=== PATIENT | male | born 1955 | race Caucasian/White ===

== ENCOUNTER 2019-09-26 10:35 | Inpatient (IN) | payer OTHER ==
[~2019-09-26] VITALS: Ht 182.9 cm; Wt 101.2 kg
[2019-09-26] MEDS ORDERED: ASPIRIN 81 MG CHEW TAB PO ONE (11:00)
[2019-09-26 11:24] LABS: BASOPHILS % 0.4 % (0.0-1.0); EOSINOPHILS # (AUTO) 0.2 (0.0-0.4); EOSINOPHILS % 3.4 % (0.0-6.0); HEMATOCRIT 40.3 % (38.2-49.6); HEMOGLOBIN 13.7 g/dL (14.0-18.0); LYMPHOCYTES # (AUTO) 1.7 (1.0-3.2); LYMPHOCYTES % 31.3 % (18.0-39.1); MEAN CORPUSCULAR VOLUME 85.2 fL (81-99); MONOCYTES # (AUTO) 0.4 (0.2-0.8); MONOCYTES % 8.3 % (4.4-11.3); NEUTROPHILS % 56.4 % (38.7-80.0); PLATELET COUNT 144 x10e3/uL (140-360); RED BLOOD COUNT 4.73 x10e6/uL (4.3-5.7); RED CELL DISTRIBUTION WIDTH 12.8 % (11.7-14.4)
[2019-09-26 11:41] LABS: INR 1.04; PROTHROMBIN TIME 14.1 seconds (11.9-14.5)
[2019-09-26 11:42] LABS: PARTIAL THROMBOPLASTIN TIME 31.7 seconds (23.8-35.5)
[2019-09-26 11:44] LABS: ALANINE AMINOTRANSFERASE 12 IU/L (0-55); ALBUMIN 3.8 g/dL (3.5-5.0); ALBUMIN/GLOBULIN RATIO 1.1 (0.8-2.0); ALKALINE PHOSPHATASE 82 IU/L (40-150); ANION GAP 14.8 mmol/L (8-16); BLOOD UREA NITROGEN 12 mg/dL (7-26); BUN/CREATININE RATIO 11 (6-25); CALCIUM 9.1 mg/dL (8.4-10.2); CARBON DIOXIDE 25 mmol/L (22-29); CHLORIDE 104 mmol/L (98-107); CREATINE KINASE 107 IU/L (30-200); CREATININE, SERUM 1.08 mg/dL (0.72-1.25); EST GLOMERULAR FILTRATION RATE > 60 ML/MIN (60-); MAGNESIUM 2.1 MG/DL (1.3-2.1); POTASSIUM 3.8 mmol/L (3.5-5.1); SODIUM 140 mmol/L (136-145)
[2019-09-26 11:59] LABS: GLUCOSE 88 mg/dL (74-118)
--- NOTE | 2019-09-26 12:06 | Diagnostic Imaging Report ---
EXAMINATION: CHEST SINGLE (PORTABLE) COMPARISON: None INDICATION: ^CP ^[id number] ^1136 DISCUSSION: Frontal view of the chest obtained at 1136 hours. HEART AND MEDIASTINUM: The cardiomediastinal silhouette is unremarkable. LINES: None. LUNGS: The lungs are well inflated and clear. Trace left basilar atelectasis. There is mild eventration of the left diaphragm PLEURA: No pleural effusion or pneumothorax. BONES AND SOFT TISSUES: Mild degenerative changes. No focal osseous lesion. The soft tissues are normal. IMPRESSION: Trace left basilar atelectasis and mild eventration of the left diaphragm. Signed by: Dr. Willow Hassan MD on 09/26/2019 12:02 PM
[2019-09-26] MEDS ORDERED: ONDANSETRON HCL INJ 2MG/ML 2ML 2 MG/ML VIAL IV PRN (12:30)
[2019-09-26] MEDS ORDERED: MORPHINE SULFATE 2 MG/ML SYR 1ML IV PRN (12:30)
[2019-09-26] MEDS: ENOXAPARIN SODIUM INJ 100 MG/ML SYR SC SCH (12:45)
--- OUTSIDE RECORDS SUMMARY | 2019-09-26 12:47 | XMS REPORT ---
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 Allergies, Adverse Reactions, Alerts This patient has no known allergies or adverse reactions. Medications This patient has no known medications. Results Test Description Test Time Test Comments Text Results Atomic Results Result Comments CHEST SINGLE (PORTABLE) 2019-09-26 12:01:[address] [address] Patient Name: VOLODYMYR ALVES JR MR #: [id number] : 1955 Age/Sex: 64/M Req #: [id number] Adm Physician: Ordered by: OTILIA RICHMOND MD Report #: [id number] Location: ER Room/Bed: Procedure: [id number] DX/CHEST SINGLE (PORTABLE) Exam Date: 09/26/19 Exam Time: 1136 REPORT STATUS: Signed EXAMINATION: CHEST SINGLE (PORTABLE) COMP ARISON: None INDICATION: CP [id number] DISCUSSION: Frontal view of the chest obtained at 1136 hours. HEART AND MEDIASTINUM: The cardiomediastinal silhouette is unremarkable. LINES: None. LUNGS: The lungs are well inflated and clear. Trace left basilar atelectasis. There is mild eventration of the left diaphragm PLEURA: No pleural effusion or pneumothorax. BONES AND SOFT TISSUES: Mild degenerative changes. No focal osseous lesion. The soft tissues are normal. IMPRESSION: Trace left basilar atelectasis and mild eventration of the left diaphragm. Signed by: Dr. Juanita Hassan MD on 09/26/2019 12:02 PM Dictated By: JUANITA HASSAN MD 1202 Transcribed By: MIGUEL ANGEL on 09/26/19 120 COPY TO: OTILIA RICHMOND MD
--- NOTE | 2019-09-26 14:45 | NUR ---
RECEIVED, PATIENT FROM ER, PATIENT ARRIVED IN STRETCHER HE IS ALERT AND ORIENTED X4, INDEPENDENT VERBALIZING NEEDS., DENIES PAIN. ORIENTED TO ROOM AND USE OF CALL LIGHT. BED IN LOW POSITION BREAK ON BELONGINGS AND CALL LIGHT WITHIN REACH WILL CONTINUE TO MONITOR .
[2019-09-26 15:00] VITALS: BP 165/88
[2019-09-26 15:36] VITALS: BP 165/88
[2019-09-26] MEDS: FAMOTIDINE 20 MG/2 ML VIAL IV SCH (16:31)
[2019-09-26 16:35] VITALS: BP 165/88
[2019-09-26] MEDS ORDERED: ASPIRIN81 MG PO (19:30)
[2019-09-26] MEDS ORDERED: LOSARTAN POTAS100 MG PO (19:30)
[2019-09-26] MEDS ORDERED: SEROQUEL25 MG PO (19:34)
--- NOTE | 2019-09-26 19:45 | NUR ---
CONSULT CALLED TO DR. MATHEW LEFT MESSAGE IN VOICE MAIL WAITING FOR CALL BACK.
[2019-09-26] MEDS ORDERED: LASIX20 MG PO (20:06)
[2019-09-26 20:30] VITALS: BP 132/85
[2019-09-26] MEDS ORDERED: TYLENOL WITH C1 EACH PO (20:38)
[2019-09-26] MEDS ORDERED: INDOMETHACIN25 MG PO (20:38)
[2019-09-26] MEDS ORDERED: HYDRALAZINE HCL 20 MG/ML VIAL IV PRN (20:45)
[2019-09-26 21:11] LABS: CREATINE KINASE MB 2.4 ng/mL (0-5.0)
[2019-09-27] VITALS (9 sets, daily range): BP systolic 114–150; BP diastolic 60–93
[2019-09-27] MEDS: ENOXAPARIN SODIUM INJ 100 MG/ML SYR SC SCH ×2 (01:30→13:00)
[2019-09-27] MEDS: FAMOTIDINE 20 MG/2 ML VIAL IV SCH ×2 (01:30→13:00)
[2019-09-27 06:43] LABS: CREATINE KINASE MB 1.8 ng/mL (0-5.0)
[2019-09-27 07:01] LABS: ALANINE AMINOTRANSFERASE 11 IU/L (0-55); ALBUMIN 3.4 g/dL (3.5-5.0); ALBUMIN/GLOBULIN RATIO 1.1 (0.8-2.0); ALKALINE PHOSPHATASE 74 IU/L (40-150); ANION GAP 12.7 mmol/L (8-16); BLOOD UREA NITROGEN 12 mg/dL (7-26); BUN/CREATININE RATIO 15 (6-25); CARBON DIOXIDE 25 mmol/L (22-29); CHLORIDE 103 mmol/L (98-107); CHOL/HDL RATIO 6.7 (3.9-4.7); CHOLESTEROL 187 MD/DL (0-199); CREATININE, SERUM 0.81 mg/dL (0.72-1.25); EST GLOMERULAR FILTRATION RATE > 60 ML/MIN (60-); GLUCOSE 109 mg/dL (74-118); HDL CHOLESTEROL 28 MG/DL (40-60); LDL CHOLESTEROL 136 MG/DL (60-130); POTASSIUM 3.7 mmol/L (3.5-5.1); SODIUM 137 mmol/L (136-145); TRIGLYCERIDES 116 MG/DL (0-149)
[2019-09-27 08:02] LABS: BASOPHILS % 0.4 % (0.0-1.0); EOSINOPHILS # (AUTO) 0.2 (0.0-0.4); EOSINOPHILS % 3.6 % (0.0-6.0); HEMATOCRIT 37.7 % (38.2-49.6); LYMPHOCYTES # (AUTO) 1.7 (1.0-3.2); LYMPHOCYTES % 34.6 % (18.0-39.1); MEAN CORPUSCULAR HEMOGLOBIN 29.3 pg (28-32); MEAN CORPUSCULAR HGB CONC 34.5 g/dL (31-35); MEAN CORPUSCULAR VOLUME 85.1 fL (81-99); MONOCYTES # (AUTO) 0.4 (0.2-0.8); MONOCYTES % 7.6 % (4.4-11.3); NEUTROPHILS # (AUTO) 2.7 (2.1-6.9); NEUTROPHILS % 53.6 % (38.7-80.0); PLATELET COUNT 135 x10e3/uL (140-360); RED BLOOD COUNT 4.43 x10e6/uL (4.3-5.7); RED CELL DISTRIBUTION WIDTH 12.8 % (11.7-14.4)
[2019-09-27] MEDS ORDERED: ASPIRIN 325 MG TAB EC PO SCH (09:00)
[2019-09-27] MEDS ORDERED: ACETAMINOPHEN/CODEINE 300MG - 30MG TAB PO PRN (09:30)
--- NOTE | 2019-09-27 13:15 | Consultation ---
DATE OF CONSULTATION: 09/27/2019 Cardiology Consultation REQUESTING PHYSICIAN: Jimmy Clemente MD. REASON FOR CONSULTATION: Chest pain. HISTORY OF PRESENT ILLNESS: This is a 64-year-old male with history of hypertension and hyperlipidemia, who presents with complaints of chest pain. He reports he began having chest pain day night, which he described as mild 2 to 3/10 in severity with radiation to the left arm. There was no shortness of breath, nausea, or diaphoresis. The pain lasted approximately 1 hour before resolving. He indicates he had another episode of chest pain approximately one week prior. He denies any edema, orthopnea or PND. On presentation to the ER, he was noted to have an elevated troponin of 0.304. Cardiology is therefore consulted for further evaluation. REVIEW OF SYSTEMS: Negative except as per HPI. PAST MEDICAL HISTORY: Hypertension, hyperlipidemia. PAST SURGICAL HISTORY: 1. Appendectomy with hernia surgery. 2. Lap band. ALLERGIES: NO KNOWN DRUG ALLERGIES. MEDICATIONS: Please see medication list. SOCIAL HISTORY: He smoked up to three packs a day for over 20 years. No alcohol or drugs. FAMILY HISTORY: Pertinent for father, who of myocardial infarction. PHYSICAL EXAMINATION: VITAL SIGNS: Temperature 97.3, pulse 65, respiratory rate 18, blood pressure 140/83, oxygen saturation 99% on room air. GENERAL: Awake, alert, in no acute distress. Well developed, well nourished. HEENT: Normocephalic, atraumatic. Pupils are equal. No scleral icterus. NECK: Supple. No thyromegaly or lymphadenopathy. No carotid bruits. LUNGS: Clear to auscultation bilaterally. No wheezes or crackles. CARDIOVASCULAR: Normal rate, regular rhythm. No murmur. Normal S1, S2. ABDOMEN: Soft, nontender. EXTREMITIES: No edema. NEUROLOGIC: Nonfocal exam. LABORATORY DATA: WBC 5.03, hemoglobin 13, hematocrit 37.7, platelets 135. Sodium 137, potassium 3.7, chloride 103, CO2 of 25, BUN 12, creatinine 0.81. Troponin 0.304. BNP 151. Cholesterol 187, triglycerides 116, LDL 136, HDL 28. Chest x-ray trace left basilar atelectasis and mild eventration of the left diaphragm. EKG; sinus rhythm, premature atrial complexes, nonspecific T-wave abnormality. IMPRESSION: 1. Kbn-KN-xhbjbwmgl myocardial infarction. 2. Hypertension. 3. Hyperlipidemia. RECOMMENDATIONS: Continue Lovenox and aspirin. Continue losartan and add statin. The patient is n.p.o. for cardiac catheterization. Further recommendations to follow. Thank you for this consult. We will continue to follow. Yessica Trevino MD ABS/MODL /[id number]
[2019-09-27] MEDS ORDERED: HEPARIN SOD/SOD CHLORIDE 2,000 ML ONE (15:23)
[2019-09-27] MEDS ORDERED: LIDOCAINE HCL 2% LOCAL 20 ML VIAL ONE (15:23)
[2019-09-27] MEDS ORDERED: IOPAMIDOL 370 MG/ML 200 ML INFUS..BTL INJ ONE (15:23)
[2019-09-27] MEDS ORDERED: MIDAZOLAM HCL 2 MG/2 ML VIAL ONE ×2 (15:23→15:40)
[2019-09-27] MEDS ORDERED: FENTANYL CITRATE/PF 100MCG/2 ML INJ ONE (15:23)
[2019-09-27] MEDS ORDERED: SODIUM CHLORIDE 0.9% 1000ML 1,000 ML ONE (15:24)
[2019-09-27] MEDS ORDERED: TICAGRELOR 90 MG TABLET ONE (15:53)
[2019-09-27] MEDS ORDERED: ASPIRIN 325 MG TAB ONE (15:53)
[2019-09-27 15:58] LABS: CREATINE KINASE MB 1.5 ng/mL (0-5.0)
[2019-09-27] MEDS ORDERED: DOCUSATE SODIUM 100 MG CAP PO SCH (17:00)
--- NOTE | 2019-09-27 18:53 | NUR ---
Patient with minimal bleeding at site after getting out of bed, right groin site soft, no hematoma present, new dressing applied, will continue to monitor.
[2019-09-27] MEDS ORDERED: ATORVASTATIN 40 MG TAB PO SCH (21:00)
[2019-09-27] MEDS ORDERED: QUETIAPINE FUMARATE 25 MG TAB PO SCH (21:00)
--- NOTE | 2019-09-27 23:54 | Operative Report ---
DATE OF PROCEDURE: 09/27/2019 SURGEON: Leighton Malave MD INDICATION FOR PROCEDURE: Non-ST elevation MN. PREPROCEDURE ASSESSMENT: The risks, benefits, and alternatives, to the treatment were explained to the patient prior to the procedure. Informed consent was obtained and documented in the medical record. The patient was deemed to be an appropriate candidate for moderate sedation. MEDICATIONS: Please see nursing notes for all medications administered throughout the procedure. PROCEDURES PERFORMED: 1. Coronary angiography, right femoral access, left heart catheterization with LV angiography. 2. PCI of the left circumflex with the CRISTINA x1. 3. Vascular closure device, ProGlide to the right common femoral artery. PROCEDURE DETAILS: The patient was brought to the cardiac catheterization laboratory in the fasting state. Right groin was prepped and draped in a sterile fashion. A 6-Congolese sheath was inserted into the right common femoral artery using modified Seldinger technique without any difficulty. Coronary angiography was performed using the JL4 and JR4 5-Congolese diagnostic catheters. Left heart catheterization was performed using a pigtail catheter. LV angiography was performed using the same pigtail catheter. Multiple orthogonal views were taken of each coronary artery. All catheters were removed over a wire. At the conclusion of the angiogram, angiogram demonstrated 99% lesion of the left circumflex artery. This is likely the culprit. We decided to proceed with PCI. PCI of the left circumflex XB 3.5 6-Congolese guide was used which provided adequate support. The lesion was wired using 3 more run-through wire without much difficulty. Predilation was performed using 2.0 x 15 mm compliant balloon. We attempted to pass the stent after pre-dilating, however, the 3.0 x 30 mm drug-eluting stent was unable to cross. We pre-dilated further using a 2.5 x 15 mm compliant balloon at 16 atmospheres. This resulted in the balloon angioplasty result. We once again attempted to cross this 3.0 x 30 mm stents, however, we were unsuccessful. We then added additional supports with a GuideLiner and with addition of the GuideLiner support, we were able to cross the lesion using that 3.0 x 30 mm drug-eluting stent. The stent was deployed at 12 atmospheres and resulted in excellent angiographic result without any residual thrombus, dissection, or spasm. The patient tolerated the procedure well. There were no immediate complications. All interventional equipment was removed. Right femoral angiography revealed arteriotomy in the right common femoral artery above the bifurcation. Lesion was deemed suitable for closure with a vascular closure device. We performed vascular closure using ProGlide Perclose suture and achieved excellent hemostasis. ACT near 300 was maintained with 10,000 units of IV bolus of . Dual antiplatelet therapy was given with 325 of aspirin and 180 mg of Brilinta at the end of the case. The patient tolerated the procedure well. There were no immediate complications. SIGNIFICANT FINDINGS: Left main, long left main large caliber with no significant CAD, lad large vessel wraps around the apex, one significant diagonal branch. There is a 60% tubular lesion in the mid LAD, measuring about 12-15 mm in length. Left circumflex, large nondominant left circumflex artery with one large OM branch. There is diffuse moderate plaquing of the proximal and mid circumflex leading into 90% height. Moderately calcified lesion of the mid circumflex artery with CRYSTAL-3 flow distally. RCA is a very large dominant RCA. There is mild to moderate plaquing throughout, the worst area of stenosis being 30% to 40% in the mid portion. There is a medium-size posterolateral and posterior descending artery branching from the distal RCA. LV end-diastolic pressure of 24 mmHg. No gradient across the aortic valve. LV ejection fraction estimated to be about 60% to 65% by LV angiography via hand injection. GRAFTS AND IMPLANTS: Drug-eluting stent x1. SPECIMENS REMOVED: None. ESTIMATED BLOOD LOSS: 50 mL. COMPLICATIONS: None. FINAL RECOMMENDATIONS: 1. Continue aspirin 81 mg daily for life and ticagrelor 90 mg b.i.d. for at least one year. 2. Optimal medical therapy and risk factor control including a high-intensity statin if tolerated. 3. Outpatient ischemic evaluation for dxxnhudr-yp-ztnizm 50% mid LAD disease. 4. Follow up in clinic 2 weeks post procedure. MD NAVA Soliz/MARYL /[id number]
[2019-09-28] MEDS: FAMOTIDINE 20 MG/2 ML VIAL IV SCH (01:01)
[2019-09-28] MEDS: ENOXAPARIN SODIUM INJ 100 MG/ML SYR SC SCH ×2 (01:01→08:57)
[2019-09-28 03:00] VITALS: BP 128/75
[2019-09-28] MEDS ORDERED: Atorvastatin PO (04:49)
[2019-09-28] MEDS ORDERED: BRILINTA90 MG PO (04:49)
[2019-09-28 08:00] VITALS: BP 125/85
[2019-09-28] MEDS ORDERED: INDOMETHACIN 25 MG CAP PO SCH (09:00)
[2019-09-28] MEDS ORDERED: FUROSEMIDE 20 MG TAB PO SCH (09:00)
[2019-09-28] MEDS ORDERED: LOSARTAN POTASSIUM 100 MG TAB PO SCH (09:00)
[2019-09-28] MEDS ORDERED: TICAGRELOR 90 MG TABLET PO SCH (09:00)
[2019-09-28 09:16] VITALS: BP 125/85
--- NOTE | 2019-09-28 10:00 | NUR ---
No further bleeding noted to right groin site. Gauze dressing is dry and intact.
--- NOTE | 2019-09-28 11:06 | NUR ---
Patient discharged and taken via wheelchair to awaiting vehicle and here to drive him home. Written prescriptions and written discharge orders also given to patient and patient verbalized understanding instructions.. Respirations are even and unlabored. Denies any chest pain or discomfort. V/S are stable. Right IV removed and tolerated well.
--- NOTE | 2019-09-28 18:29 | Progress Note ---
DATE: 09/28/2019 Cardiology Progress Note SUBJECTIVE: The patient denies chest pain or shortness of breath. He underwent cardiac catheterization yesterday with PCI of the circumflex. OBJECTIVE: VITAL SIGNS: Temperature 98.1 degrees, pulse 76, respiratory rate 20, blood pressure 125/85, and oxygen saturation 96% on room air. GENERAL: Awake, alert, no acute distress. LUNGS: Clear to auscultation bilaterally. No wheezes or crackles. CARDIOVASCULAR: Normal rate, regular rhythm. No murmur. Normal S1, S2. ABDOMEN: Soft, nontender. EXTREMITIES: No edema. Right groin with dressing intact. Oozing is present, but no hematoma or bruit. CARDIAC MEDICATIONS: Atorvastatin 40 mg p.o. at bedtime, aspirin 325 mg p.o. daily, Lovenox 100 mg subcu q.12 hours, losartan 25 mg p.o. daily, furosemide 20 mg p.o. daily. LABORATORY DATA: None today. IMPRESSION: 1. Ooz-BF-byadqwihl myocardial infarction. 2. Coronary disease status post circumflex percutaneous coronary intervention. 3. Hypertension. 4. Hyperlipidemia. RECOMMENDATIONS: Stop Lovenox. The patient was counseled on the importance of dual antiplatelet therapy with aspirin 81 mg p.o. daily and Brilinta 90 mg p.o. b.i.d. Continue losartan. Add metoprolol. The patient was started on atorvastatin for risk factor modification. LDL goal of less than 70 was discussed with the patient as well as lifestyle modification. He will need outpatient nuclear stress test for further evaluation of his LAD stenosis. Continue current cardiac medications. The patient was instructed to follow up in the office in two weeks. Thank you for this consult. We will continue to follow. Yessica Trevino MD ABS/MODL /[id number]
--- NOTE | 2019-09-29 17:48 | Discharge Summary ---
ADMISSION DIAGNOSES: 1. Chest pain. 2. Kix-IR-nevgdqmve myocardial infarction. 3. Hypertension. 4. Smoking. 5. Obesity with a BMI of 30.24. DISCHARGE DIAGNOSES: 1. Chest pain. 2. Oxr-GD-wintkevzr myocardial infarction. 3. Hypertension. 4. Smoking. 5. Obesity with a BMI of 30.24. HISTORY: Hypertension, gout, tinnitus. PAST SURGICAL HISTORY: Appendectomy, right inguinal hernia repair, lap band. FAMILY HISTORY: The patient's mom had cancer. The patient's dad had a heart attack. SOCIAL HISTORY: The patient admits to tobacco use two packs of cigarettes a day. HOSPITAL COURSE: A 64-year-old male began having chest pain on Friday, which referred to the left arm. He denies swelling, shortness of breath. He admits to having chest pain about a week ago, which was exactly the same pain. On admission, chest x-ray showed trace left basilar atelectasis and mild eventration of the left and right diaphragm. Troponins were 0.247, 0.175 and 0.168 with a BNP of 151. The patient was taken to medical laboratory technician per Cardiology recommendation,. corn lab technician found long left main large caliber with no significant CAD, 60% lesion in the mid LAD, diffuse moderate plaquing of the proximal and mid circumflex leading into 90% height. Moderately calcified lesion of the mid circumflex artery. RCA is a very large dominant RCA, mild moderate plaquing throughout. The worst area of stenosis being 30% to 40% in the midportion. There is medium sized posterolateral and posterior descending artery branching from the distal RCA. EF was estimated to be about 60% to 65%. The patient was discharged home per Cardiology recommendation on aspirin, Brilinta and statin. He will have outpatient ischemia evaluation for moderate to severe 50% mid LAD disease. He will follow up with Cardiology in two weeks. The patient was given a new prescription for Lipitor and Brilinta. He was discharged home in followup with primary care in 1 to 2 weeks. The patient understands discharge instructions and agrees to plan. Dictated by Bonny Weems NP Jimmy Clemente MD SHAN/MODL /[id number]
== END 2019-09-28 14:35 | disposition home or self-care (01) | DRG 247 ==
LOC: ER 10:41 → ERHOLD 12:28 → IMCU 14:18
PROVIDERS: ADMIT Internal Medicine; ATTEND Internal Medicine
PROC: 027034Z Dilation of Coronary Artery, One Artery with Drug-eluting Intraluminal Device, Percutaneous Approach (ICD-10-PCS; principal; 2019-09-27)
PROC: 4A023N7 Measurement of Cardiac Sampling and Pressure, Left Heart, Percutaneous Approach (ICD-10-PCS; 2019-09-27)
PROC: B2111ZZ Fluoroscopy of Multiple Coronary Arteries using Low Osmolar Contrast (ICD-10-PCS; 2019-09-27)
PROC: B2151ZZ Fluoroscopy of Left Heart using Low Osmolar Contrast (ICD-10-PCS; 2019-09-27)
DX: I21.4 Non-ST elevation (NSTEMI) myocardial infarction (principal); I25.10 Atherosclerotic heart disease of native coronary artery without angina pectoris; I10 Essential (primary) hypertension; M10.9 Gout, unspecified; R07.2 Precordial pain; Z82.49 Family history of ischemic heart disease and other diseases of the circulatory system; Z80.9 Family history of malignant neoplasm, unspecified; E66.9 Obesity, unspecified; Z68.30 Body mass index [BMI] 30.0-30.9, adult; E78.5 Hyperlipidemia, unspecified; F17.210 Nicotine dependence, cigarettes, uncomplicated
CPT/HCPCS: 36415; 71045; 80053; 80061; 82550; 82553; 83735; 83880; 84484; 85025; 85610; 85730; 92928; 93005; 93306; 93458; 99152; 99153; 99284; C1725; C1760; C1887; J1650; J2001; J2250; J3010; J7030; Q9967